=== PATIENT | female | born 1960 | race Caucasian/White ===

== ENCOUNTER 2017-04-05 14:06 | Inpatient (IN) | payer MEDICARE, BC ==
--- NOTE | ~2017-04-05 | HP ---
History And Physical [place] [id number] [facility] [place]. [address] NAME: JUJU TEJADA : 56 STATUS : ADM Stephy PAT#: [id number] AGE: 56 ADM/REG DATE : 04/05/17 MR#: [id number] REPORT SERV DATE: 04/05/17 DICTATED BY: DINO COWART DATE: 04/05/17 REPORT STATUS : Draft TRANSCRIBED BY: MODL DATE: 04/05/17 DATE OF ADMISSION: 04/05/2017 CHIEF COMPLAINT: Possible DKA. HISTORY OF PRESENT ILLNESS: History of present illness obtained from the patient as well as emergency room documents. There are no recent medical records available for us to review. According to the information available, the patient is a pleasant 56-year-old white woman with known history of diabetes type 2, insulin dependent, presently on insulin pump for over a year and half who comes into the emergency room with complaints of her blood sugar has been high, unable to bring it down. The patient stated everything has been under baseline for the last several days, but two days ago, she has noticed to have some myalgia, malaise, not feeling well, and yesterday she noticed that her blood sugar started going up, and despite giving herself boluses of insulin through her insulin pump, the blood sugar has stayed high on the measurements. Because she was afraid of possible DKA, the patient decided to come to the emergency room for further evaluation and management. The patient denies any recent acute infection. She is on antibiotics with Keflex and she has been on and off antibiotics since October for chronic sinusitis and a left maxillary sinus cyst, followed up by Dr. Thornton, ENT. The patient presently is taking Keflex prescribed for 21 days, started on 03/22/2017, and she stated that has not changed any symptoms with her sinus problems. No reported diarrhea. Mild nausea, but no vomiting. Some increased frequency, but no dysuria reported. No hematuria. No increased abdominal pain. She had noticed last night that she was slightly feverish, but not documented. No chills. No other upper URI- like symptoms. No headache. No phono or photophobia. No neck stiffness reported. No recent travel outside of the area or contact with persons that travel outside of the area. Denies any risk for insect bites or tick bites or traveling outside in the [facility]. In the emergency room, the patient was investigated. Initially, her blood pressure was 216 systolic. Her blood sugar recorded as high, and on the chemistry blood work, blood sugar was 698, but without any significant anion gap on the initial chemistry. The patient does have some small acetone in the blood as well as in the urine. The patient had received treatment in the emergency room with 1 L normal saline and 10 units IV insulin regular x1 in addition to her continuous pump without significantly improving her blood sugar levels, apparently decreased only to 560s. Therefore, because of the above presentation and findings as well as initial response to the medical treatment in the emergency room, the patient was referred to the Hospitalist Service for further management and evaluation. Please note, there is no chest x-ray done, no EKG done. Urinalysis, benign, unrevealing appearance. PAST MEDICAL HISTORY: Complex, significant for diabetes type 2, presently insulin dependent, now on insulin pump for year and a half. Followed up by Dr. Shelly Mason, residential treatment staff. The patient states that most of time she stated that her baseline insulin rate throughout the day reportedly 0.075 units an hour, occasionally not having to give herself any extra boluses, which she does by a sliding scale as an outpatient. She is not aware of her last hemoglobin A1c. History of hypothyroid, acquired. History of hyperlipidemia. History of hypertension. History of coronary artery disease, status post prior CABG in 2006. History of "heart murmur." The patient has been followed with Cardiology in [place], Dr. Pedro History And Physical [address] [address] NAME: JUJU TEJADA : 56 STATUS : ADM Stephy PAT#: [id number] AGE: 56 ADM/REG DATE : 04/05/17 MR#: [id number] REPORT SERV DATE: 04/05/17 DICTATED BY: DINO COWART DATE: 04/05/17 REPORT STATUS : Draft TRANSCRIBED BY: MODIon DATE: 04/05/17 Chao. History of chronic kidney disease, stage 3 to stage 4, followed by Dr. Lobo Sosa, Nephrology, apparently stable. Creatinine for the last seven years with a baseline creatinine around 2.3 to 2.5. History of chronic sinusitis, left maxillary sinus cyst, on and off antibiotic, chronically followed by Dr. Thornton, ENT, supposedly may need surgical intervention soon. History of COPD, ex-smoker, presently on any bronchodilators. History of obstructive sleep apnea, on home CPAP machine at home. History of depression and anxiety. History of mild insomnia. History of osteoarthritis. Reported prior pulmonary hypertension. No recent 2D echo available. PAST SURGICAL HISTORY: Significant for CABG in 2006, history of left knee arthroscopic surgery in 1999, hysterectomy, cholecystectomy, history of several cardiac catheterizations at [facility]. ALLERGIES: IODINE, CONTRAST MEDIA, IV DYE, LATEX, BEE STINGS, AND ADHESIVE TAPE. ALSO, REPORTED ALLERGIES TO SURGICAL GLUE WITH "BREAKOUT" TO THE SITE OF USAGE. HOME MEDICATIONS: According to the list provided, the patient is supposed to take Norvasc 5 mg p.o. daily; aspirin 81 mg p.o. daily; Keflex 500 mg p.o. b.i.d., started on 03/22/2017 for 21 days; vitamin D 2000 units p.o. daily; Celexa 20 mg p.o. daily; NovoLog insulin pump as instructed; Avapro 300 mg p.o. daily; magnesium oxide, Mag-Ox 500 mg p.o. daily; melatonin 3 mg p.o. at bedtime. FAMILY HISTORY: Significant for diabetes, hypertension, and coronary artery disease. SOCIAL HISTORY: She is , disabled, lives with family. Denies tobacco abuse, but she had used to smoke in the past. Denies alcohol abuse. Denies illicit or recreational drug abuse. REVIEW OF SYSTEMS: As per H and P, otherwise, negative in all review of systems. Please note, the comprehensive review of system was obtained and pertinent positives were including in the H and P. PHYSICAL EXAMINATION: GENERAL: Pleasant, cooperative, in no acute distress presently. VITAL SIGNS: Upon arrival in the emergency room, blood pressure 216/91, pulse 69, respiratory rate 16, temperature 97.9, oxygen saturation 98% in room air. HEENT: Pupils are equal, round, and reactive to light. Extraocular movements intact. Throat, mild erythema. No exudate. Mild left maxillary sinus tenderness. Nasal mucosa normal. No drainage noticed. Atraumatic and normocephalic. NECK: Supple. No JVD. No bruits. No thyromegaly. No lymph nodes. LUNGS: Bilateral air entry with few dry crackles at bases, but no wheezing, no rales. Good airway movement. HEART: Positive S1, S2. Regular rate and rhythm. Positive mitral regurgitation murmur at the apex. No rub. No gallop. PMI not displaced by palpation. ABDOMEN: Positive bowel sounds. Soft, nontender. No guarding. No hepatosplenomegaly. Obese. History And Physical [address] [address] NAME: JUJU TEJADA : 56 STATUS : ADM Stephy PAT#: [id number] AGE: 56 ADM/REG DATE : 04/05/17 MR#: [id number] REPORT SERV DATE: 04/05/17 DICTATED BY: DINO COWART DATE: 04/05/17 REPORT STATUS : Draft TRANSCRIBED BY: JUANITO DATE: 04/05/17 EXTREMITIES: Decreased range of motion. Osteoarthritic changes. No clubbing, no cyanosis, no edema. No calf tenderness. +2 pulses. NEUROLOGIC: Alert and oriented x3. Grossly nonfocal. Cranial nerves 2 through 12 grossly intact. Motor strength 5/5 symmetrical bilateral. Deep tendon reflexes 2/2 symmetrical bilateral. Coordination intact. Appropriate mood and affect. BACK: Decreased range of motion, but no focal localized tenderness, no CVA tenderness. SKIN: No bruises, no rashes, no lacerations. SIGNIFICANT LABORATORY DATA: Chest x-ray, not available, not done. EKG, not available, not done at this moment. Sodium of 130, potassium of 5.5, chloride 94, bicarb 23, BUN 57, creatinine 2.6. Glucose 698 initially. With the above-mentioned treatment in the emergency room, glucose fingerstick 516. Calcium 8.9. Liver function tests within normal limits, non revealing, benign appearance. Lipase 113 which is normal. Small acetone in the blood. Troponin-I less than 0.02. Urinalysis showed no signs of infection with a protein 100 and glucose more than 500 and ketones 20. White cell count 7, hemoglobin 11.8, platelet count 177. ASSESSMENT AND PLAN/PROBLEM LIST: The patient is a pleasant 56-year-old white woman, known history of diabetes, insulin dependent, presented with hyperglycemic state, uncontrolled hypertension. IMPRESSION: 1. Endocrinologic problem:. a. Diabetes type 2, insulin dependent with complications including hyperglycemic state, nonketotic. We are going to change to insulin drip IV and start IV hydration with normal saline after another bolus of LR. We are going to obtain strict I's and O's and repeat chemistry and continue to use insulin drip as per protocol. Monitor electrolytes, correct as indicated. Check a hemoglobin A1c and also obtain a hospice educator to assist with transition back to her insulin pump. We will obtain records from Dr. Mason, residential treatment staff, regarding her last office visit and management. b. Hypothyroid, acquired, continuous Synthroid by history. Presently, on no apparent medication. We are going to check a TSH, free T4, and free T3. c. Hyperlipidemia, mixed type by history. Also, on no medication at this moment. We are going to check a lipid profile in a.m. Consider adding statin due to her coronary artery disease history. d. Obesity. Encourage weight loss and moderate structured exercise. 2. Cardiovascular:. a. Hypertension, uncontrolled upon admission. We are going to restart Norvasc and Avapro. Use IV hydralazine p.r.n. for increased blood pressure. b. Coronary artery disease, status post prior coronary artery bypass grafting. We are going to check CK and troponin-I. Repeat EKG. c. History of heart murmur. We are going to re-evaluate last available 2D echo and repeat as indicated. We are going to continue aspirin for now. 3. Chronic kidney disease, stage 3 to stage 4. Apparently, stable with a creatinine around 2.3 to 2.5. Monitor urine output. Continue medications and monitor BUN and creatinine. Monitor potassium which was slightly elevated upon admission. History And Physical [address] [address] NAME: JUJU TEJADA : 56 STATUS : ADM Stephy PAT#: [id number] AGE: 56 ADM/REG DATE : 04/05/17 MR#: [id number] REPORT SERV DATE: 04/05/17 DICTATED BY: DINO COWART DATE: 04/05/17 REPORT STATUS : Draft TRANSCRIBED BY: MODL DATE: 04/05/17 4. Chronic sinusitis, left maxillary sinusitis, with maxillary sinus cyst. Continue antibiotics, already for almost three weeks through the treatment. Add Florastor probiotic due to chronic antibiotic usage. 5. Pulmonary:. a. Chronic obstructive pulmonary disease by history. Ex-smoker. On no bronchodilators at this moment. Symptomatically, no wheezing or shortness of breath. We are going to use DuoNeb only p.r.n. shortness of breath. b. Obstructive sleep apnea, on CPAP machine. Encourage usage of home CPAP machine as per home settings. 6. Depression, anxiety. Provide emotional support. Continue her Celexa. Use p.r.n. Ativan for anxiety. PROGNOSIS: Moderately good for this admission. Discussed with patient and questions answered in full. Please note, the patient is a full code at this moment as discussed with the patient at bedside. Please note, also the written H and P, written orders, and instructions. RF/MODL Dino Cowart M.D. / [id number] CC: Reji Zamora AZHAR S. Stuart G Ginther, M.D. David L Armstrong, M.D. Robert J. Mills, M.D. Shelly Mason M.D.
--- NOTE | ~2017-04-05 | DS ---
Discharge Summary [facility] [address] [place]. [address] NAME: JUJU TEJADA : 56 STATUS : DIS IN PAT#: [id number] AGE: 56 ADM/REG DATE : 04/06/17 MR#: [id number] REPORT SERV DATE: 04/07/17 DICTATED BY: ANTNOIO PARKER DATE: 04/07/17 REPORT STATUS : Draft TRANSCRIBED BY: MODL DATE: 04/07/17 ADMISSION DATE: 04/06/2017 DISCHARGE DATE: 04/07/2017 PRINCIPAL DIAGNOSIS: Diabetic ketoacidosis in the setting of chronic type 2 diabetes, diagnostic of "type 1.5 diabetes." SECONDARY DIAGNOSES: 1. Stage 4 chronic kidney disease. 2. Peripheral neuropathy. 3. Hypertension. 4. Obstructive sleep apnea. HISTORY OF PRESENT ILLNESS: The patient was admitted with severe hyperglycemia after having a malfunction of her insulin pump for 8 to 12 hours a couple of days prior. The patient had blood sugar greater than 600 despite the ongoing use of her insulin pump. She was taken off that and put her on insulin infusion, however, given her type 2 diabetes, insulin infusion was not given appropriately for DKA despite the presence of a both serum and urinary ketosis, but an anion gap of only 14 or 15 upon presentation. The insulin drip had been turned off per the type 2 diabetic protocol once again resulting in severe hyperglycemia, although she did not have an anion gap on repeat testing. Insulin infusion was re- continued, but basal bolus insulin route was instituted with resolution of her DKA, normalization of blood sugar, elimination of nausea, and normal sense of well being. She is to turn back on her insulin pump and off the insulin infusion on 04/07/2017. She was released in satisfactory condition, following up with Dr. El Estes, primary care provider in one to two weeks, and Dr. Mason of endocrinology as previously scheduled. She was instructed; however, that she was dependent on insulin here henceforth and should take a basal insulin in the event of future pump malfunctions. DICTATED BY: Reji Zamora/JUANITO Antonio Parker M.D. / [id number] CC: Reji Zamora AZHAR S. Dianne Roland, M.D.
[2017-04-05 12:10] LABS: BASOPHILS 0.4 %; BASOPHILS ABSOLUTE 0.03 10/3/uL (0.0-0.16); EOSINOPHILS 0.9 %; EOSINOPHILS ABSOLUTE 0.06 10/3/uL (0.0-0.53); ER CBC TAT 0 Hrs 07 Mins; HEMATOCRIT 37.5 % (36.0-48.0); HEMOGLOBIN 11.8 g/dL (12.0-16.0); IMMATURE GRANULOCYTES 0.3 %; IMMATURE GRANULOCYTES ABSOLUTE 0.02 10/3/uL (0.0-0.11); LYMPHOCYTES 15.8 %; MANUAL DIFF NO %; MEAN CORPUS HGB CONC 31.5 g/dL (32.0-36.0); MEAN CORPUSCULAR VOLUME 92.1 fL (80-100); MEAN PLATELET VOLUME 12.5 fL (9.2-13.0); MONOCYTES 3.4 %; MONOCYTES ABSOLUTE 0.24 10/3/uL (0.21-1.20); NEUTROPHILS 79.2 %; NEUTROPHILS ABSOLUTE 5.53 10/3/uL (2.02-8.40); PLATELET COUNT 177 10/3/uL (150-400); RBC DISTRIBUTION WIDTH 13.6 % (12.0-16.0); RED CELL COUNT 4.07 10/6/uL (4.0-5.6)
[2017-04-05 12:11] LABS: ASCORBIC ACID (UR NOT ORDER) NEG (NEG); BILIRUBIN, URINE NEGATIVE (NEG); ER URINALYSIS TAT 0 Hrs 08 Mins; KETONE, URINE 20 MG/DL (NEG); LEUKOCYTE ESTERASE(NOT OR NEG (NEG); NITRITE (URINE) NEG (NEG); WBC (NOT ORDERED) (RFLEX) < 1 (0-5)
[2017-04-05 12:24] LABS: A/G RATIO 0.9 (0.7-1.9); ALBUMIN 3.7 G/DL (3.5-5.0); ALKALINE PHOSPHATASE 108 U/L (45-117); CALCIUM, SERUM 8.9 MG/DL (8.5-10.4); CHLORIDE, SERUM 94 MMOL/L (96-112); CO2 (CARBON DIOXIDE) 23 MMOL/L (24-34); GFR AFRICAN AMERICAN 23 ML/MIN (>=60); GFR NON AFRICAN AMERICAN 20 ML/MIN (>=60); GLOBULIN 4.3 G/DL (2.5-4.1); POTASSIUM, SERUM 5.5 MMOL/L (3.5-5.3); SGOT(AST) 19 U/L (5-40); SGPT(ALT) 25 U/L (5-65); TOTAL BILIRUBIN 1.4 MG/DL (0-1.2)
[2017-04-05 12:25] LABS: BUN (BLOOD UREA NITROGEN) 57 MG/DL (6-23); GLUCOSE, SERUM 698 MG/DL (60-99); SODIUM, SERUM 130 MMOL/L (135-148)
[2017-04-05 13:08] LABS: ACETONE SMALL
[2017-04-05 13:33] LABS: TROPONIN I <0.02 NG/ML (<0.05)
[~2017-04-05 14:06] MED LIST: APRES50 PO; ASAB PO; AVAP150 PO; BEN25 PO; CLARIT10 PO; FLONASE NAS; L40 PO; LANTUS SC; LANTUSCART SC; NAC PO; NOVOLOG SC; NOVOPEN SC; P20 PO; PEP20 PO; SYN88 PO; ZOCOR20 PO; [UNRECOGNIZED DRUG - CODE]
[2017-04-05] MEDS ORDERED: MELA3 PO (14:34)
[2017-04-05] MEDS ORDERED: NORV5 PO (14:34)
[2017-04-05] MEDS ORDERED: K500 PO (14:35)
[2017-04-05] MEDS ORDERED: HALF81 PO (14:35)
[2017-04-05] MEDS ORDERED: AVAPRO300 MG PO (14:35)
[2017-04-05] MEDS ORDERED: CELEXA20 PO (14:36)
[2017-04-05] MEDS ORDERED: VITAMIN D2000 UNIT PO (14:36)
[2017-04-05] MEDS ORDERED: MAG OXIDE250 MG PO (14:36)
[2017-04-05] MEDS ORDERED: NOVLOGPUMP SC (14:37)
[2017-04-05 17:48] LABS: FREE T4 0.93 NG/DL (0.76-1.46); PHOSPHORUS, SERUM 4.5 MG/DL (2.5-4.5)
[2017-04-05 17:49] LABS: CK-MB 1.8 NG/ML
[2017-04-05 18:00] LABS: CPK 120 U/L (0-200)
[2017-04-05 21:45] LABS: ALBUMIN 3.2 G/DL (3.5-5.0); CALCIUM, SERUM 8.8 MG/DL (8.5-10.4); CHLORIDE, SERUM 103 MMOL/L (96-112); CREATININE 2.27 MG/DL (0.55-1.02); GFR AFRICAN AMERICAN 27 ML/MIN (>=60); GFR NON AFRICAN AMERICAN 23 ML/MIN (>=60); POTASSIUM, SERUM 4.4 MMOL/L (3.5-5.3)
[2017-04-05 21:47] LABS: BUN (BLOOD UREA NITROGEN) 51 MG/DL (6-23); CO2 (CARBON DIOXIDE) 29 MMOL/L (24-34); GLUCOSE, SERUM 100 MG/DL (60-99); PHOSPHORUS, SERUM 3.3 MG/DL (2.5-4.5); SODIUM, SERUM 138 MMOL/L (135-148)
[2017-04-06 04:28] LABS: BASOPHILS 1.2 %; BASOPHILS ABSOLUTE 0.05 10/3/uL (0.0-0.16); EOSINOPHILS 5.1 %; EOSINOPHILS ABSOLUTE 0.22 10/3/uL (0.0-0.53); HEMATOCRIT 33.9 % (36.0-48.0); HEMOGLOBIN 10.9 g/dL (12.0-16.0); IMMATURE GRANULOCYTES 0.2 %; IMMATURE GRANULOCYTES ABSOLUTE 0.01 10/3/uL (0.0-0.11); LYMPHOCYTES 43.8 %; MEAN CORPUS HGB CONC 32.2 g/dL (32.0-36.0); MEAN CORPUSCULAR HEMOGLOB 29.1 pg (26.0-34.0); MEAN CORPUSCULAR VOLUME 90.4 fL (80-100); MEAN PLATELET VOLUME 12.3 fL (9.2-13.0); MONOCYTES 8.3 %; MONOCYTES ABSOLUTE 0.36 10/3/uL (0.21-1.20); NEUTROPHILS 41.4 %; PLATELET COUNT 168 10/3/uL (150-400); RBC DISTRIBUTION WIDTH 13.6 % (12.0-16.0); RED CELL COUNT 3.75 10/6/uL (4.0-5.6); WHITE BLOOD CELLS 4.3 10/3/uL (4.5-10.5)
[2017-04-06 04:29] LABS: MANUAL DIFF NO %
[2017-04-06 05:04] LABS: BUN (BLOOD UREA NITROGEN) 49 MG/DL (6-23); CALCIUM, SERUM 8.9 MG/DL (8.5-10.4); CHLORIDE, SERUM 106 MMOL/L (96-112); CHOL/HDL RATIO(NOT ORDER) 2.1 (0-5); CHOLESTEROL 190 MG/DL (< 200); CO2 (CARBON DIOXIDE) 29 MMOL/L (24-34); CREATININE 2.08 MG/DL (0.55-1.02); GFR AFRICAN AMERICAN 30 ML/MIN (>=60); GFR NON AFRICAN AMERICAN 26 ML/MIN (>=60); GLUCOSE, SERUM 114 MG/DL (60-99); HDL CHOLESTEROL 90 MG/DL (> 49); LDL CHOLESTEROL 85 MG/DL (< 130); NON-HDL CHOLESTEROL 100 MG/DL (< 160); PHOSPHORUS, SERUM 3.8 MG/DL (2.5-4.5); POTASSIUM, SERUM 4.9 MMOL/L (3.5-5.3); SODIUM, SERUM 140 MMOL/L (135-148); TRIGLYCERIDE 76 MG/DL (< 150); TROPONIN I <0.02 NG/ML (<0.05)
[2017-04-06 05:08] LABS: CK-MB 1.5 NG/ML; CPK 85 U/L (0-200)
[2017-04-06 06:41] LABS: PROCALCITONIN 4.24 ng/mL (<0.5)
[2017-04-06 12:54] LABS: BUN (BLOOD UREA NITROGEN) 46 MG/DL (6-23); CALCIUM, SERUM 8.8 MG/DL (8.5-10.4); CHLORIDE, SERUM 107 MMOL/L (96-112); CO2 (CARBON DIOXIDE) 25 MMOL/L (24-34); CREATININE 2.29 MG/DL (0.55-1.02); GFR AFRICAN AMERICAN 26 ML/MIN (>=60); GFR NON AFRICAN AMERICAN 23 ML/MIN (>=60); POTASSIUM, SERUM 4.3 MMOL/L (3.5-5.3); SODIUM, SERUM 140 MMOL/L (135-148)
[2017-04-06 12:56] LABS: GLUCOSE, SERUM 150 MG/DL (60-99)
[2017-04-07] MEDS ORDERED: MVI PO (10:39)
[2017-04-07] MEDS ORDERED: FLORASTOR250 MG PO (10:41)
== END 2017-04-07 10:30 | disposition home or self-care (01) | DRG 919 ==
LOC: ER 14:06 → CDU1 14:32
PROVIDERS: Emergency Medicine; Internal Medicine
DX: T85.694A Other mechanical complication of insulin pump, initial encounter (principal); E13.10 Other specified diabetes mellitus with ketoacidosis without coma; N18.4 Chronic kidney disease, stage 4 (severe); E11.42 Type 2 diabetes mellitus with diabetic polyneuropathy; I27.2 Other secondary pulmonary hypertension; E03.9 Hypothyroidism, unspecified; I12.9 Hypertensive chronic kidney disease with stage 1 through stage 4 chronic kidney disease, or unspecified chronic kidney disease; G47.33 Obstructive sleep apnea (adult) (pediatric); T38.3X6A Underdosing of insulin and oral hypoglycemic [antidiabetic] drugs, initial encounter; E78.5 Hyperlipidemia, unspecified; I25.10 Atherosclerotic heart disease of native coronary artery without angina pectoris; J44.9 Chronic obstructive pulmonary disease, unspecified; F32.9 Major depressive disorder, single episode, unspecified; F41.9 Anxiety disorder, unspecified; Z90.710 Acquired absence of both cervix and uterus; Z95.1 Presence of aortocoronary bypass graft; Z90.49 Acquired absence of other specified parts of digestive tract; Z79.4 Long term (current) use of insulin; Z96.41 Presence of insulin pump (external) (internal); Z91.041 Radiographic dye allergy status; Z91.030 Bee allergy status; Z91.048 Other nonmedicinal substance allergy status; Z87.891 Personal history of nicotine dependence
CPT/HCPCS: 71020; 80048; 80053; 80061; 80069; 81001; 82009; 82550; 82553; 82962; 83036; 83690; 83735; 83880; 84100; 84145; 84439; 84443; 84481; 84484; 85025; 93005; 96374; 99285; A9270-GY